=== PATIENT | male | born 1980 | race Caucasian/White ===

== ENCOUNTER 2021-07-09 17:35 | Emergency (ER) | payer OTHER ==
[~2021-07-09] VITALS: Ht 167.6 cm; Wt 79.4 kg
[2021-07-09 18:25] VITALS: BP_SYST 112
--- NOTE | 2021-07-09 18:40 | NUR ---
Patient to ER bed 7 to gown for evaluation. Side rails up.
--- NOTE | 2021-07-09 18:45 | NUR ---
ER Dr. Gilliland at bedside examining patient.
--- NOTE | 2021-07-09 18:45 | NUR ---
Pt walked in to ER with c/o generalized weakness x1 week, reports h/o anemia. Denies noting any bleeding or ever needing a transfusion. No other c/o at this time. V/S stable, no acute distress noted.
--- NOTE | 2021-07-09 18:50 | NUR ---
Radiology at bedside for CXR
--- NOTE | 2021-07-09 18:56 | NUR ---
Lab at bedside for blood transfusion
--- NOTE | 2021-07-09 19:04 | NUR ---
PT RESTING. VSS. PT STATED HAVING WEAKNESS FOR THE PAST COUPLE DAYS. CURRENTLY DENIES ANY PAIN AT THIS TIME.
[2021-07-09 19:23] LABS: BASOPHILS % (AUTO) 0.5 % (0.0-2.0); EOSINOPHILS % (AUTO) 0.4 % (0.0-4.0); HEMATOCRIT 41.7 % (36-54); HEMOGLOBIN 14.4 g/dL (14.0-18.0); LYMPHOCYTES # (AUTO) 1.5 K/uL (1.0-5.5); LYMPHOCYTES % (AUTO) 24.5 % (20.5-51.5); MEAN CORPUSCULAR HEMOGLOBIN 30 pg (27-31); MEAN CORPUSCULAR HGB CONC 34 % (32-36); MEAN CORPUSCULAR VOLUME 88 fL (79.0-98.0); MONOCYTES # (AUTO) 0.5 K/uL (0.0-1.0); MONOCYTES % (AUTO) 8.4 % (1.7-9.3); NEUTROPHILS # (AUTO) 4.1 K/uL (1.8-7.7); NEUTROPHILS % (AUTO) 66.2 % (40.0-70.0); PLATELET COUNT (AUTO) 205 K/uL (130-430); RED BLOOD CELL COUNT(AUTO) 4.73 MIL/uL (4.2-6.2); RED CELL DISTRIBUTION WIDTH 12.5 % (9.0-15.0); WHITE BLOOD COUNT (AUTO) 6.1 K/uL (4.8-10.8)
[2021-07-09 19:31] LABS: BILIRUBIN,URINE NEGATIVE (NEGATIVE); BLOOD, URINE NEGATIVE (NEGATIVE); COLOR,URINE YELLOW (YELLOW); GLUCOSE,URINE NEGATIVE (NEGATIVE); KETONES,URINE NEGATIVE (NEGATIVE); LEUKOCYTE ESTERASE ,URINE NEGATIVE (NEGATIVE); NITRITE, URINE NEGATIVE (NEGATIVE); PROTEIN URINE NEGATIVE (NEGATIVE); UROBILINOGEN,URINE 0.2 (0.2-1.0)
[2021-07-09 19:31] LABS: ACETONE, SERUM NEGATIVE (NEGATIVE)
[2021-07-09 19:33] LABS: PROTHROMBIN TIME 10.3 SECS (9.5-12.5)
[2021-07-09 19:39] LABS: CLARITY/URINE HAZY (CLEAR)
[2021-07-09 19:40] LABS: BACTERIA,URINE FEW /HPF (None Seen); MUCUS,URINE None Seen /LPF (None Seen); RBC,URINE NONE SEEN /HPF (0-3); URINE AMORPHOUS PHOSPHATES 3+ /HPF (None Seen); WBC,URINE 0-3 /HPF (0-3)
[2021-07-09 19:45] LABS: ANION GAP 6 (5-15); CALCIUM 8.8 mg/dL (8.4-11.0); CHLORIDE 103 mmol/L (98-107); CREATININE 1.16 mg/dL (0.55-1.30); GLUCOSE 103 mg/dL (70-99); SODIUM SERUM 137 mmol/L (136-145); UREA NITROGEN, BLOOD 19 mg/dL (8-21)
[2021-07-09 19:50] LABS: ALANINE AMINOTRANSFERASE 32 U/L (12-78); ALBUMIN 4.1 g/dL (3.4-4.8); ASPARTATE AMINOTRANSFERASE 19 U/L (10-37); TOTAL BILIRUBIN 0.2 mg/dL (0.0-1.0)
[2021-07-09 20:47] VITALS: BP_SYST 112
--- NOTE | 2021-07-09 20:47 | NUR ---
Patient given written and verbal discharge instructions and verbalizes understanding. DR. SHAYNA BANDA MD discussed with patient the results and treatment provided. Patient in stable condition. ID arm band removed. Patient educated on pain management and to follow up with PMD. Pain Scale 0/10. Opportunity for questions provided and answered. Medication side effect fact sheet provided.
== END 2021-07-09 20:47 | disposition home or self-care (01) ==
LOC: SED 17:35
DX: R53.1 Weakness (principal); R42 Dizziness and giddiness
CPT/HCPCS: 36415; 71045; 80053; 81000; 82009; 82550; 83605; 84484; 85025; 85610-TC; 85730-TC; 86886; 86900; 86901; 93005; 99285

== ENCOUNTER 2023-10-30 03:39 | Emergency (ER) | payer OTHER ==
[~2023-10-30] VITALS: Ht 167.6 cm; Wt 86.2 kg
[2023-10-30 03:50] VITALS: BP_SYST 126; PULSE 72; RESP 20; TEMP 97.9; O2SAT 97
[2023-10-30] MEDS ORDERED: FLOEARD EACH EYE (03:54)
[2023-10-30 04:02] VITALS: BP_SYST 126; PULSE 72; RESP 20; TEMP 97.9; O2SAT 97
== END 2023-10-30 04:01 | disposition home or self-care (01) ==
LOC: SED 03:39
DX: H10.89 Other conjunctivitis (principal); Z79.899 Other long term (current) drug therapy
CPT/HCPCS: 99283